=== PATIENT | female | born 1980 | race Caucasian/White ===

== ENCOUNTER 2021-12-11 09:08 | Outpatient (CLI) | payer OTHER, SELFPAY ==
[2021-12-11 12:42] LABS: Creatinine Urine 53.5 mg/dL
[2021-12-11 12:47] LABS: MALB Creatinine Ratio 286.4 mg/g (0-30); Microalbumin Urine Random 153.2 mg/L (0-16.7)
== END 2021-12-11 09:09 | disposition home or self-care (01) ==
PROVIDERS: Visit Provider Internal Medicine Endocrinology, Diabetes & Metabolism
DX: E10.65 Type 1 diabetes mellitus with hyperglycemia (principal)
CPT/HCPCS: 82043